=== PATIENT | female | born 1960 | race Caucasian/White ===

== ENCOUNTER → 2021-02-11 | Outpatient (CLI) | payer SELFPAY ==
[~2021-02-11] MED LIST: AMLODIPINE BESYL5 MG PO; BYSTOLIC2.5 MG PO; BYSTOLIC20 MG PO; CATAPRES 0.1MG0.1 MG PO; CIPRO500 MG PO; DILTIAZEM ER180 MG PO; ECOTRIN81 MG PO; MACROBID 100 M100 MG PO; PRINIVIL20 MG PO; ZOFRAN4 MG PO
== END ==
LOC: MAMO 09:50
DX: Z12.31 Encounter for screening mammogram for malignant neoplasm of breast (principal)
CPT/HCPCS: 77063; 77067